=== PATIENT | female | born 1960 | race Caucasian/White ===

== ENCOUNTER → 2017-01-18 | Outpatient (CLI) | payer OTHER ==
[~2017-01-18] MED LIST: ASCORBIC ACID500 M3 PO; B COMPLETE1 EACH PO; CIPRO500 MG PO; DAILY VALUE1 EACH PO; MELATONIN3 MG PO; NORCO 5/3251 TABLET PO; VITAMIN C1500 MG PO; VITAMIN D22000 UNIT PO; ZOFRAN ODT4 MG PO
== END | disposition home or self-care (01) ==
LOC: EKG 13:00
DX: D86.9 Sarcoidosis, unspecified (principal); R91.8 Other nonspecific abnormal finding of lung field; R05 Cough
CPT/HCPCS: 71020; 93005; 93306